=== PATIENT | female | born 1955 | race Caucasian/White ===

== ENCOUNTER 2020-05-31 09:19 | Day surgery (SDC) | payer MEDICARE, MEDICAID, OTHER, SELFPAY ==
[2020-05-30 08:30] VITALS: BMI 35.2
[2020-05-31] VITALS (8 sets, daily range): BP systolic 115–156; BP diastolic 61–88; PULSE 57–73; RESP 15–18; TEMP 36.4–36.7; O2SAT 94–97
[2020-05-31 10:02] LABS: Glucose Point of Care 107 mg/dL (70-110)
--- NOTE | 2020-05-31 10:09 | NM_ITS ---
WS: [id number] SENTINEL NODE TECHNIQUE: Right sentinel node injection CLINICAL INFORMATION: BREAST MASSES COMPARISON: None. PROCEDURE: The procedure including risks, benefits, and complications were discussed; the patient agr eed to proceed. Patient was prepped and draped in usual sterile fashion. Subsequently, 1% lidocaine p reservative-free was administered at the 12:00, 3:00, 6:00, and 9:00 o'clock positions for local anes thesia. Subsequently, 4 aliquots of filtered technetium 99m sulfur colloid was injected into the subc utaneous soft tissues. A total dose of 0.83 mCi was administered. Patient tolerated the procedure well with no immediate complications. NV/NM sentinel node inject [id number] IMPRESSION: Uncomplicated right breast sentinel node injection with a total dose of 0.83 mC i.
--- NOTE | 2020-05-31 11:24 | ANES.PREANE2 ---
Pre-Anesthetic Assessment Pre-Anesthetic Assessment: Height/Weight: Height 1.6 m Weight 90.265 kg Temp Pulse Resp BP Pulse Ox 97.6 F 64 18 132/68 97 05/31/20 09:49 05/31/20 09:49 05/31/20 09:49 05/31/20 09:49 05/31/20 09:49 Proposed Procedure: Operation Date: 05/31/20 12:00 Proposed Procedures p Sentinal Lymph Node Biopsy(Right) - Macho Broussard MD s right breast lumpectomy(Right) - Macho Broussard MD s Umbilical Hernia Repair(Not Applicable) - Macho Broussadr MD Familial anesthetic complications: None Was Beta Bimal taken within 24 hours: N/A Last intake: Intake NPO > 8 hrs Last Liquid Date 05/30/20 Last Solid Date 05/30/20 Social: Social History: Tobacco and No alcohol Exam: Pre-Anes Outpt Exam: alert, oriented x 3, clear to auscultation bilaterally and regular rate & rhythm Airway: Cervical ROM: WNL MP: 3 Dentition: Full Pulmonary: Comments: hx bronchitis - last episode last year in fall CV/HEM: CV/HEM: HTN Metabolic: Metabolic: DM Musc/skel: Musc/skel: Lower Back Pain Neuropsych: Neuropsych: None reported Anesthetic Plan: ASA status: 2 Anesthesia: General Risk of > 500 ml blood loss (7ml/kg in children): No PFSH Anesthesia PFSH: Family History (Updated 05/30/20 @ 08:21 by Veronica San) Mother Breast cancer Social History (Updated 05/30/20 @ 08:28 by Veronica San) Smoking and tobacco status: current every day smoker cigarettes Packs smoked per day: 0.5 Years cigarettes smoked: 30 Number of cigarettes per day: 6-10 Data Anesthesia Other Labs: Laboratory Results - last 48 hr 05/31/20 09:55 POC Glucose 107 Cardiac Studies: No Data to Display
[2020-05-31] MEDS: sodium chloride 0.9% 1,000 ML 30 ML IV (12:00)
--- NOTE | 2020-05-31 12:52 | W.PM.OPSUD ---
Surgery/Procedure H&P Update DATE OF PROCEDURE: May 31, 2020 DATE H&P PERFORMED: 05/21/20 H&P UPDATE INFORMATION: I have examined patient prior to procedure and No changes to prior documentation PLANNED PROCEDURE: Operation Date: 05/31/20 12:00 Proposed Procedures p Sentinal Lymph Node Biopsy(Right) - Macho Broussard MD s right breast lumpectomy(Right) - Macho Broussard MD s Umbilical Hernia Repair(Not Applicable) - Macho Broussard MD
--- NOTE | 2020-05-31 14:02 | PM.OP ---
Operative Report Date of procedure: May 31, 2020 Pre-op Diagnosis: 1. ER/CT positive, HER-2/allyson negative right breast cancer.2. Umbilical hernia. Post-op diagnosis: same Procedure Done: 1. Right breast lumpectomy. 2. Right axillary sentinel lymph node biopsy. 3. Repair of umbilical hernia. Specimens removed/disposition: 1. Right breast lumpectomy. Long suture anteriorly, short suture laterally. 2. Right axillary sentinel lymph node(s). Surgeon: Macho Broussard Anesthesia: General Estimated blood loss (mL): 10 Complications: None. Condition: stable Disposition: PACU Procedure: The patient was brought to the operating room and was placed in a supine position on the operating room table. The patient had undergone radioactive tracer injection in radiology preoperatively. General endotracheal anesthesia was induced. The right breast/axilla and abdomen were prepped and draped in a sterile fashion. A combination of 1% lidocaine and 0.5% bupivacaine with 1-200,000 parts epinephrine was used for local anesthesia throughout the procedures. Attention was first directed to the right axilla. The gamma probe was used to find the hot spot in the right axilla. A curvilinear incision was carried out over the center inferiorly at the edge of the hairbearing area of the axilla. Cautery and blunt dissection were used to traverse the subcutaneous tissue and the axilla was entered. Using a combination of inspection and the gamma probe, the hot lymph node was found and was completely removed using blunt dissection and cautery. The area appeared to be more of a lymph node package with several lymph nodes adjacent and somewhat matted to each other. The lymph node package registered counts as high as 130 on the field. Further inspection of the axilla with the gamma probe revealed essentially no remaining counts. The wound was irrigated with saline. A suture of 3-0 Vicryl was used to bring the deeper tissue together and the skin was approximated using a running subcuticular suture of 4-0 Vicryl. Attention was then directed to the right breast. The palpable mass was at the 8:00 axis. A radial incision was carried out over the palpable mass and skin flaps were created both superiorly and inferiorly. The mass was completely excised with a rim of normal-appearing breast tissue using cautery. Before the mass was completely removed, the specimen was oriented with a long suture anteriorly and a short suture laterally for pathology. The wound was irrigated with saline. The skin was reapproximated using a running subcuticular suture of 4-0 Vicryl. Finally, attention was directed to the umbilicus. A curvilinear incision was carried out underneath the umbilicus and cautery was used to enter the subcutaneous tissue. The hernia sac was freed from the dependent portion of the umbilical skin and the herniated contents were eventually reduced through the defect which measured perhaps 2 cm in diameter. The defect was closed at the fascial layer using multiple inverted interrupted sutures of 0 Prolene. Some afbnil-kq-[id number] sutures of 0 Vicryl were used to buttress the repair in between the Prolene sutures. The wound was irrigated with saline and the dependent portion of umbilical skin was brought back down to the fascia with a suture of 0 Vicryl. The skin was reapproximated using a running subcuticular suture of 4-0 Vicryl. Benzoin and Steri-Strips were placed over the wounds and sterile bandages followed. The patient was taken to the recovery area in stable condition postoperatively.
--- NOTE | 2020-05-31 14:22 | SUR.PHASEI ---
PT ON RA TRIAL, PT AWAKES TO VOICE EASILY REPLIES VERBALLY AND APPROPRIATELY, VSS ABD SOFT WITH DRESSING TO UMBILICAL AREA D/I AND TO RT AXILLARY AND LOWER BREAST AREAS ALSO D/I PT VERBALLY DENIES PAIN AND NAUSEA
== END 2020-05-31 15:30 | disposition home or self-care (01) ==
PROVIDERS: PCP Family Medicine; Visit Provider Surgery
PROC: (CPT 19302; principal; 2020-05-31 12:00)
PROC: (CPT 19302; 2020-05-31 12:00)
PROC: (CPT 19302; 2020-05-31 12:00)
DX: C50.911 Malignant neoplasm of unspecified site of right female breast (principal); K42.9 Umbilical hernia without obstruction or gangrene; Z17.0 Estrogen receptor positive status [ER+]; I10 Essential (primary) hypertension; E11.9 Type 2 diabetes mellitus without complications; F17.210 Nicotine dependence, cigarettes, uncomplicated; Z79.84 Long term (current) use of oral hypoglycemic drugs; Z79.82 Long term (current) use of aspirin; Z80.3 Family history of malignant neoplasm of breast
CPT/HCPCS: 19302; 49587; 12345; 36416; 38792; 82962; 88305; A9541; J0690; J2405; J2704; J2710; J3010; J3490; J7030

== ENCOUNTER 2020-06-15 08:04 | Outpatient (CLI) | payer MEDICARE, OTHER, MEDICAID, SELFPAY ==
--- NOTE | 2020-06-15 19:24 | ONC CON_ITS ---
Dr. Yancey New Patient Note Patient: Tata Amezcua Unit #: [id number]: 1955 Dicatated By: Ramin Yancey M.D.Date of Visit: Jun 15, 2020 Onc MED New Patient/Consult Referring Physician: Dr. Macho Broussard M.D. Chief Complaint: Breast cancer. History of Present Illness: This is a 64 year-old woman with grade 1 infiltrating ductal carcinoma of the right breast, ER/KY positive and HER-2/allyson negative. She had presented with a palpble lump in the right breast, first noticed in October. She had initial evaluation in [facility] which included mammograms and biopsies of both breasts. I do not have those reports available. Apparently the biopsy from the left breast was benign, but the right breast showed an infiltrating ductal carcinoma which was ER/KY positive and HER-2/allyson negative. She was then seen by Dr. Broussard on 05/21/2020, and on 05/31/2020 she underwent right breast lumpectomy with axillary sentinel lymph node biopsy. Pathology showed a grade 1 invasive ductal carcinoma measuring 1.0 cm in maximum dimension. The surgical margins were free, with the closest being the inferior margin measured at 0.9 cm. The axillary sentinel lymph node biopsy included 1 lymph node which showed malignant cell clusters measuring no more than 0.2 mm (less than 200 cells). The pathologic staging was pT1b, pN0 (i+). She has been in good general health. She has good energy and activity tolerance. Her appetite has been good and her weight is been stable. She has no fever or night sweats. She has no shortness of breath, cough, or chest pain. She has no GI or complaints. She has some mild arthritis symptoms, mainly stiffness in her knees and hands, and that is pretty well controlled with meloxicam. She also has a previous neck and back injury, and she does have some chronic back pain. She sometimes has a little tingling. She also has some anxiety/depression, as the past year is been very difficult for her, with her and a sister having both . Her son recently had to have a surgery. Past Medical History: Her medical history includes degenerative arthritis, gastroesophageal reflux disease, gout, hypertension, and type II diabetes. Past Surgical History: She underwent right breast lumpectomy with axillary sentinel lymph node biopsy on 05/31/2020. Her other surgical/procedural history has been limited to back surgery x 2 and a cervical fusion. Medications: amLODIPine Besylate 1 Tablet (of 10 mg) Oral daily, Aspirin (81 mg) Tablet, chewable Oral daily, Colcrys 1 Tablet (of 0.6 mg) Oral PRN, HYDROcodone-Acetaminophen 1 Tablet (of 7.5-325 mg) Oral t.i.d., Meloxicam 1 Tablet (of 7.5 mg) Oral daily, metFORMIN HCl 1 Tablet (of 500 mg) Oral b.i.d., Metoprolol Tartrate 1 Tablet (of 25 mg) Oral b.i.d., Ozempic (0.25 or 0.5 MG/DOSE) (2 mg/1.5mL) Subcutaneous daily, Potassium Chloride ER 1 Tablet (of 10 meq) Tablet, controlled release Oral b.i.d., Valsartan-hydroCHLOROthiazide 1 Tablet (of 320-25 mg) Oral daily Allergies: No Known Allergies. Social History: Ms. Amezcua is . She has a history of smoking 1 pack of cigarettes daily for 17 years. She does not drink alcohol. Family History: Father with COPD at age 84. Mother still living at age 85. She has diabetes and she has been treated for breast cancer. She has 5 sisters. One of heart disease and another has coronary artery disease. Her maternal grandmother of cervical cancer. Two maternal aunts had breast cancer and another maternal aunt had lung cancer. Review Of Symptoms: Constitutional - She has been feeling great. Her energy is good. She has normal activity without restrictions. Her appetite is good and her weight is stable. No fever, night sweats, or hot flashes. ECOG score is 0, Eyes - No change in vision, ENMT - No hearing loss or tinnitus. No sinus congestion/drainage. No mouth sores. No sore throat or difficulty swallowing, Hematologic/Lymphatic - No abnormal bruising or bleeding, Respiratory - No shortness of breath. No cough. No pleuritic pain or hemoptysis, Cardiovascular - No angina pain. No palpitations, Gastrointestinal - No nausea or vomiting. No heartburn or acid reflux. No diarrhea or constipation. No blood in the stool or black stools, Genitourinary (F) - No dysuria or hematuria. No urinary frequency. No urgency or incontinence, Musculoskeletal - She is taking meloxicam for joint pain. She has chronic back pain from an injury several years ago, Integumentary - No skin complications, Neurologic - No headache or dizziness. She has some numbness and tingling in her right fingers. No other focal neurologic symptoms, Psychiatric - She has some anxiety and depression. No insomnia. Vital Signs: Performed on Jun 15, 2020 08:45: 1, 31.59 (HIGH), 1.87 sq.m, 63.50 in, 94 % (LOW), 74 /min, 24 /min, 138/71 mm(hg), 99.2 F (HIGH), and 181.2 lbs (HIGH). Physical Examination: Constitutional - She appears to be in good general health, Eyes - Sclerae nonicteric. Conjunctivae clear, ENMT - No lesions noted in the oral cavity, Neck - No mass or thyromegaly, Hematologic/Lymphatic - No cervical or clavicular adenopathy, Respiratory - Lungs are clear. There is pretty good air movement bilaterally, Cardiovascular - Heart rhythm is regular. There is no murmur, gallop, or rub noted, Breasts - There is a recent biopsy site in the lower outer right breast. There are no breast masses noted. There a palpable nodule in the right axilla which appears consistent with postoperative seroma. There is no axillary adenopathy noted, Abdomen - Soft and non-tender. Liver and spleen are not enlarged. There is no abdominal mass or ascites noted and there is no inguinal adenopathy, Back/Spine - No spine or CVA tenderness noted, Extremities - No edema. Pedal pulses are palpable bilaterally, Integumentary - No rashes. No suspicious skin lesions noted, Neurologic - No focal neurologic deficits noted. Impression: 1. Patient with grade 1 infiltrating ductal carcinoma of the right breast, stage IA (pT1b, pN0 (i+), M0). 2. She underwent right breast lumpectomy with axillary sentinel lymph node biopsy on 05/31/2020. 3. She had negative biopsy of a suspicious lesion on the left breast mammogram. Her other medical illnesses include: 4. Hypertension. 5. Type 2 diabetes. 6. GERD. 7. Degenerative arthritis. 8. Gout. Plan: The pathology findings were reviewed with the patient, and we discussed the clinical implications. She has relatively small infiltrating ductal carcinoma of the right breast which is grade 1, ER/KY positive, and HER-2 negative. There is microscopic involvement in a single axillary sentinel lymph node, which is quite surprising. Nonetheless, she should still have a favorable prognosis. We discussed options for local/regional treatment of the breast. I was assuming that she would want to just proceed with breast radiation, but she does indicate that she may be wanting to consider bilateral mastectomy and reconstruction. She is aware that either treatment would have the same outcome in terms of cure rate, though with a small risk of recurrence in the ipsilateral breast and some risk of contralateral breast cancer if she does opt for radiation. We discussed the fact that she also will need systemic adjuvant therapy, and to that end I will be requesting an Oncotype DX assay. If that comes back low risk, her adjuvant therapy will be limited to hormonal therapy with an aromatase inhibitor. If it is high risk she may potentially benefit with adjuvant chemotherapy. At this point I will just plan to discuss this further when the Oncotype results are available. Signed By: Ramin Yancey M.D. <<Signature on File>>
== END 2020-06-15 08:05 | disposition home or self-care (01) ==
LOC: ONCMED 08:09
PROVIDERS: PCP Family Medicine; Visit Provider Internal Medicine Medical Oncology
DX: C50.511 Malignant neoplasm of lower-outer quadrant of right female breast (principal); C77.3 Secondary and unspecified malignant neoplasm of axilla and upper limb lymph nodes; Z17.0 Estrogen receptor positive status [ER+]; I10 Essential (primary) hypertension; E11.9 Type 2 diabetes mellitus without complications; K21.9 Gastro-esophageal reflux disease without esophagitis; M19.90 Unspecified osteoarthritis, unspecified site; M10.9 Gout, unspecified; Z87.891 Personal history of nicotine dependence
CPT/HCPCS: 99205

== ENCOUNTER 2020-07-03 14:50 | Outpatient (CLI) | payer MEDICARE, OTHER, MEDICAID, SELFPAY ==
--- NOTE | 2020-07-04 08:39 | ONC FU_ITS ---
Dr. Yancey Patient Follow-Up Note Patient: Tata Amezcua Unit #: [id number]: 1955 Dicatated By: Ramin Yancey M.D.Date of Visit:Jul 03, 2020 Onc Med Follow-up/Prog Note Chief Complaint: Breast cancer. History of Present Illness: This is a 64 year-old woman with grade 1 infiltrating ductal carcinoma of the right breast, stage IA (pT1b, pN0(i+), M0), ER/DE positive and HER-2/allyson negative. She had presented with a palpble lump in the right breast, first noticed in October. She had initial evaluation in [facility] which included mammograms and biopsies of both breasts. I do not have those reports available. Apparently the biopsy from the left breast was benign, but the right breast showed an infiltrating ductal carcinoma which was ER/DE positive and HER-2/allyson negative. She was then seen by Dr. Broussard on 05/21/2020, and on 05/31/2020 she underwent right breast lumpectomy with axillary sentinel lymph node biopsy. Pathology showed a grade 1 invasive ductal carcinoma measuring 1.0 cm in maximum dimension. The surgical margins were free, with the closest being the inferior margin measured at 0.9 cm. The axillary sentinel lymph node biopsy included 1 lymph node which showed malignant cell clusters measuring no more than 0.2 mm (less than 200 cells). The pathologic staging was pT1b, pN0 (i+). I had seen her initially on 06/15/2020. In the setting of an ER/DE positive cancer with microscopic lymph node involvement, I had recommended further evaluation with Oncotype DX. That result has just become available, and it shows a recurrence score of 12 corresponding to a 9-year recurrence risk of 13% with adjuvant hormonal therapy. There was no apparent benefit with addition of adjuvant chemotherapy. She is seen today to review the Oncotype DX result and to discuss further management of the breast cancer. She has feeling good generally. Her other medical illnesses have been limited to hypertension, type 2 diabetes, GERD, degenerative arthritis, and gout. She has a history of smoking 1 pack of cigarettes daily. She does complain that she is having more anxiety/depression. Medications: amLODIPine Besylate 1 Tablet (of 10 mg) Oral daily, Aspirin (81 mg) Tablet, chewable Oral daily, Colcrys 1 Tablet (of 0.6 mg) Oral PRN, HYDROcodone-Acetaminophen 1 Tablet (of 7.5-325 mg) Oral t.i.d., Meloxicam 1 Tablet (of 7.5 mg) Oral daily, metFORMIN HCl 1 Tablet (of 500 mg) Oral b.i.d., Metoprolol Tartrate 1 Tablet (of 25 mg) Oral b.i.d., Ozempic (0.25 or 0.5 MG/DOSE) (2 mg/1.5mL) Subcutaneous daily, Potassium Chloride ER 1 Tablet (of 10 meq) Tablet, controlled release Oral b.i.d., Valsartan-hydroCHLOROthiazide 1 Tablet (of 320-25 mg) Oral daily Allergies: No Known Allergies. Vital Signs: Performed on Jul 03, 2020 15:14 Height - 63.50 in Weight - 178.0 lbs (LOW) BSA - 1.85 sq.m BMI - 31.04 (HIGH) Temperature - 99.2 F (HIGH) Pulse - 58 /min (LOW) Respiration - 22 /min BP - 135/69 mm(hg) O2 Sat - 96 % Pain - 5 Impression: 1. Patient with grade 1 infiltrating ductal carcinoma of the right breast, stage IA (pT1b, pN0 (i+), M0). Her Oncotype DX was low risk with recurrence score of 12 corresponding to a 13% risk of distant recurrence at 9 years with adjuvant hormonal therapy. 2. She underwent right breast lumpectomy with axillary sentinel lymph node biopsy on 05/31/2020. 3. She had negative biopsy of a suspicious lesion on the left breast mammogram. Her other medical illnesses include: 4. Hypertension. 5. Type 2 diabetes. 6. GERD. 7. Degenerative arthritis. 8. Gout. Plan: She has low risk disease by Oncotype DX. As such, her systemic adjuvant treatment will be limited to hormonal therapy with an aromatase inhibitor. She still needs to complete her primary treatment. She has been undecided as to whether or not she wants to continue with breast conservation management or just have mastectomy/reconstruction. At this point she is leaning towards breast conservation, particularly if she is able to get the radiation in [place]. In either case, she wants to defer this until at least mid July so that she can participate in trail rides which are scheduled for early July. However, I will go ahead and start her hormonal therapy with anastrozole 1 mg daily. I reviewed common side effects including the risk of osteoporosis and the potential for musculoskeletal pain, among others. She will need a baseline bone density, which I will try and get scheduled in [place], and baseline lab studies. I will plan a 3-month follow-up visit. In the meantime, she also is going to start venlafaxine ER 75 mg daily for her anxiety/depression. Pomq-al-koia time with patient was 25 minutes, greater than 50% spent in counseling/discussion. Signed By: Ramin Yancey M.D. <<Signature on File>>
== END 2020-07-03 14:51 | disposition home or self-care (01) ==
LOC: ONCMED 14:55
PROVIDERS: PCP Family Medicine; Visit Provider Internal Medicine Medical Oncology
DX: C50.511 Malignant neoplasm of lower-outer quadrant of right female breast (principal); Z17.0 Estrogen receptor positive status [ER+]; I10 Essential (primary) hypertension; E11.9 Type 2 diabetes mellitus without complications; K21.9 Gastro-esophageal reflux disease without esophagitis; M19.90 Unspecified osteoarthritis, unspecified site; M10.9 Gout, unspecified
CPT/HCPCS: 99214

== ENCOUNTER → 2021-04-23 00:01 | Outpatient (BNVA) | payer MEDICARE, OTHER, MEDICAID, SELFPAY | PROVIDERS: PCP Registered Nurse; Visit Provider Registered Nurse | DX: I10 Essential (primary) hypertension (principal); E11.9 Type 2 diabetes mellitus without complications; E78.5 Hyperlipidemia, unspecified | CPT/HCPCS: 80053; 80061; 83036; 85025 ==

== ENCOUNTER → 2021-12-17 10:41 | Outpatient (BNVA) | payer MEDICARE, OTHER, MEDICAID, SELFPAY | PROVIDERS: PCP Registered Nurse; Visit Provider Registered Nurse | DX: E11.9 Type 2 diabetes mellitus without complications (principal); F41.9 Anxiety disorder, unspecified | CPT/HCPCS: 80053; 83036 ==

== ENCOUNTER → 2022-07-07 10:22 | Outpatient (BNVA) | payer MEDICARE, OTHER, MEDICAID, SELFPAY | PROVIDERS: PCP Registered Nurse; Visit Provider Registered Nurse | DX: I10 Essential (primary) hypertension (principal); E78.5 Hyperlipidemia, unspecified; E11.9 Type 2 diabetes mellitus without complications; G89.4 Chronic pain syndrome; Z71.3 Dietary counseling and surveillance | CPT/HCPCS: 80053; 80061; 83036; 85025 ==

== ENCOUNTER → 2022-11-10 09:06 | Outpatient (BNVA) | payer MEDICARE, OTHER, MEDICAID, SELFPAY | PROVIDERS: PCP Registered Nurse; Visit Provider Registered Nurse | DX: E11.9 Type 2 diabetes mellitus without complications (principal); Z71.3 Dietary counseling and surveillance; E66.9 Obesity, unspecified; F17.210 Nicotine dependence, cigarettes, uncomplicated | CPT/HCPCS: 82043; 83036 ==

== ENCOUNTER → 2023-02-16 09:36 | Outpatient (BNVA) | payer MEDICARE, OTHER, MEDICAID, SELFPAY | PROVIDERS: PCP Registered Nurse; Visit Provider Registered Nurse | DX: E11.9 Type 2 diabetes mellitus without complications (principal); I10 Essential (primary) hypertension; F41.9 Anxiety disorder, unspecified | CPT/HCPCS: 80053; 80061; 83036; 85025 ==